=== PATIENT | female | born 1970 | race Caucasian/White ===

== ENCOUNTER → 2023-08-22 16:24 | Outpatient (BNVA) | payer BC, SELFPAY | PROVIDERS: Visit Provider Nurse Practitioner Family | DX: R31.9 Hematuria, unspecified (principal); K57.92 Diverticulitis of intestine, part unspecified, without perforation or abscess without bleeding; K21.9 Gastro-esophageal reflux disease without esophagitis; R10.11 Right upper quadrant pain; F17.200 Nicotine dependence, unspecified, uncomplicated; J44.9 Chronic obstructive pulmonary disease, unspecified; Z12.2 Encounter for screening for malignant neoplasm of respiratory organs; R07.9 Chest pain, unspecified; Z12.11 Encounter for screening for malignant neoplasm of colon; R06.09 Other forms of dyspnea | CPT/HCPCS: 80053; 80061; 82150; 83690 ==

== ENCOUNTER 2023-09-12 11:33 | Outpatient (CLI) | payer BC, SELFPAY ==
--- NOTE | 2023-09-12 11:42 | MM_ITS ---
WS: [id number] BILATERAL 3D TOMOSYNTHESIS DIGITAL SCREENING MAMMOGRAPHY WITH CAD CLINICAL INFORMATION: screening HISTORY: Screening mammogram. No current complaints. COMPARISON: Baseline TECHNIQUE: Bilateral CC and MLO views. FINDINGS: The breasts are composed of heterogeneous fibroglandular density tissue, which can limit the detectio n of small underlying mass lesions. No suspicious mass, asymmetry, calcifications, or architectural d istortion. No evidence of malignancy. Incidental punctate calcifications. IMPRESSION: MM/[place] [id number] BI-RADS: 2-Benign FOLLOW UP: 1 Year Follow-up Recommend return to annual screening mammography.
--- NOTE | 2023-09-12 12:30 | CT_ITS ---
WS: [id number] LDCT LUNG CANCER SCREENING TECHNIQUE: Noncontrast CT of the chest with coronal and sagittal reformatted images. CLINICAL INFORMATION: screening COMPARISON: None. DLP: 41.61 mGy.cm DIvol: Mean CTDIvol: 0.90 (mGy) All CT scans at [facility] use at least one of these dose optimization techniques: automat ed exposure control; mA and/or kV adjustment per patient size (includes targeted exams where dose is matched to clinical indication); or iterative reconstruction. FINDINGS: Ectatic ascending thoracic aorta measuring 3.7 cm. No mediastinal or hilar lymphadenopathy. No axilla ry lymphadenopathy. A few noncalcified subcentimeter pulmonary nodules in the RIGHT upper lobe and RI GHT lower lobe measuring 3 to 4 mm. A few calcified granulomas. Small hazy opacity LEFT lower lobe. N o suspicious pulmonary parenchymal opacities. LEFT adrenal adenoma measuring 1.9 cm. Splenic granulomas. Tiny esophageal hiatal hernia. Mild thoracic curve hypertrophic changes thoracic spine. IMPRESSION: Ectatic ascending thoracic aorta measuring 3.7 cm. This can be further evaluated with CTA . CT/CT lung screening 22923 LUNG-RADS: 2S-Benign Appearance or Behavior with Significant Findings FOLLOW UP: 12 Month: Continue annual screening with LDCT
== END 2023-09-12 11:34 | disposition home or self-care (01) ==
LOC: RAD 11:33
PROVIDERS: Visit Provider Nurse Practitioner Family
DX: Z12.31 Encounter for screening mammogram for malignant neoplasm of breast (principal); Z12.2 Encounter for screening for malignant neoplasm of respiratory organs; F17.200 Nicotine dependence, unspecified, uncomplicated; I77.810 Thoracic aortic ectasia
CPT/HCPCS: 71271; 77063; 77067

== ENCOUNTER → 2023-10-05 13:31 | Outpatient (BNVA) | payer BC, SELFPAY | PROVIDERS: Referring Provider Nurse Practitioner Family; Visit Provider Internal Medicine | DX: R07.9 Chest pain, unspecified (principal) | CPT/HCPCS: 93005 ==

== ENCOUNTER 2023-10-12 09:22 | Outpatient (CLI) | payer BC, SELFPAY ==
--- NOTE | 2023-10-12 10:00 | USCV_ITS ---
Reanna Li Age: 53 Gender: F : 1970 Exam Date: 10/12/2023 09:40 Ordering Phys: Jono Borrero M.D ([email or web address]) Technologist: CT Exam Location: [facility] [place] Indication: sob BP: 140 / 80 HR: 53 Rhythm: Sinus Technical Quality: Technically difficult study,copd MEASUREMENTS (Male / Female) Normal Values 2D ECHO LVOT Diameter 2.0 cm LV Ejection Fraction MOD 2C 62.5 % LV Ejection Fraction 2C AL 62.2 % LA Diameter 2.8 cm Aorta at Sinotubular Diameter 2.0 cm IVC Diameter 1.7 cm M-MODE Aortic Annulus Diameter 3.6 cm LA Ao Ratio MM 0.8 MV E Point Septal Separation 0.3 cm DOPPLER AV Peak Velocity 234.0 cm/s LVOT Peak Velocity 124.0 cm/s AV Area Cont Eq vti 1.5 cm squared AV Area Cont Eq pk 1.7 cm squared MV E' Velocity 12.0 cm/s TR Peak Velocity 76.0 cm/s TR Peak Gradient 2.3 mmHg TV Peak E Velocity 68.0 cm/s Right Atrial Pressure 3.0 mmHg Pulmonary Artery Systolic Pressu 5.3 mmHg PV Peak Velocity 176.0 cm/s FINDINGS Left Ventricle Left ventricle is normal size. LV systolic function is normal with EF of 55 to 60%. No regional wall motion abnormalities are seen. Right Ventricle Normal in size and function Right Atrium Normal in size Left Atrium Normal in size Mitral Valve Structurally normal mitral valve. Trace mitral regurgitation. Aortic Valve Aortic valve is thickened. Mild aortic stenosis with aortic valve area 1.46 cm squared and mean gradient of 11 mmHg. Tricuspid Valve Mild tricuspid regurgitation. Insufficient TR jet to calculate RVSP. Pulmonic Valve Not well visualized Pericardium Normal Aorta Normal in size IVC Appears to be normal CONCLUSIONS LV systolic function is normal with EF of 55 to 60%. Trace mitral regurgitation Mild aortic stenosis with aortic valve area 1.46 cm squared and mean gradient of 11 mmHg. Mild tricuspid regurgitation No comparison studies are available Jono Borrero MD (Electronically Signed) Final Date: 26 October 2023 11:37 S
== END 2023-10-12 09:23 | disposition home or self-care (01) ==
LOC: RAD 09:23
PROVIDERS: Visit Provider Internal Medicine
DX: I08.2 Rheumatic disorders of both aortic and tricuspid valves (principal)
CPT/HCPCS: 93306

== ENCOUNTER 2023-10-18 07:44 | Outpatient (CLI) | payer BC, SELFPAY ==
--- NOTE | 2023-10-18 08:30 | CT_ITS ---
WS: [id number] CTA THORACIC AORTA WITH AND WITHOUT CONTRAST HISTORY: Ectatic ascending thoracic aorta TECHNIQUE: CT imaging of the thorax is performed with and without contrast. After noncontrast imaging is performed, CT angiogram is performed during injection of Omnipaque 350; 100 mL IV.. Sagittal and coronal reconstructions, sagittal and coronal MIP imaging is submitted. All CT scans at [facility] use at least one of these dose optimization techniques: automated exposure control; mA and/or k V adjustment per patient size (includes targeted exams where dose is matched to clinical indication); or iterative reconstruction. DLP: 445.82 mGy.cm COMPARISON: CT 09/12/2023 Very good opacification of the thoracic aorta. Maximum transverse diameter of the ascending aorta is 4.0 cm. Normal aortic root. The ascending aortic ectasia tapers normally through the arch. The descen ding diameter of the aorta at the level of the issa is normal at 2.1 cm. There is no dissection. No rmal appearance of the pulmonary artery. Small amount of calcified plaque at the origin of the LEFT c arotid artery from the arch. No ulcerated plaque. Heart size is normal. No pericardial or pleural effusions. Mild centrilobular emphysema. Benign granu laine LEFT upper lobe. No mass or pneumonia. 3 mm nodule along the RIGHT fissure, image 30 of series 7 . Neck and chest wall are negative. No bone destruction. Degenerative spondylosis in the thoracic spi ne. IMPRESSION: 1. Mild aneurysmal dilatation of the ascending aorta to 4.0 cm. Normal tapering through the arch. 2. No dissection or ulcerated plaque. 3. Mild chronic emphysema.
[2023-10-18] MEDS: iohexol 350 mg/mL 500 mL Btl (per mL) IV (08:53)
== END 2023-10-18 07:45 | disposition home or self-care (01) ==
LOC: RAD 07:51
PROVIDERS: Visit Provider Nurse Practitioner Family
DX: I77.810 Thoracic aortic ectasia (principal); J43.9 Emphysema, unspecified
CPT/HCPCS: 71275; Q9967

== ENCOUNTER 2023-11-14 09:29 | Outpatient (CLI) | payer BC, SELFPAY ==
--- NOTE | 2023-11-14 | ECG_ITS ---
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 Interpretive Statements NAME OF STUDY: EXERCISE SESTAMIBI STRESS TEST INDICATION: [Chest Pain] EXERCISE DATA: The patient was exercised by Vern protocol. Baseline heart rate was 84 beats per minute. Baseline blood pressure was 143/81 millimeters of mercury. Maximal predicted heart rate was 167 beats per minute. Maximum heart rate achieved was 134, which was 80% of the maximum predicted heart rate. Maximum blood pressure was 157/87 millimeters of mercury. Total exercise time was 9 minutes and 19 seconds. Maximum METs achieved was 13.5. The reason for ending the test was maximal effort acieved. The patient complained of shortness of breath during the stress test, which then resolved at the end of the test. ELECTROCARDIOGRAM: BASELINE: Showed sinus rhythm, normal axis, no significant ST-T changes at the baseline noted. [] EXERCISE: At the peak exercise level, [] No significant ST-T changes suggestive of ischemia noted. [] RECOVERY: During the recovery period, heart rate dropped appropriately. No significant ST-T changes in the recovery suggestive of ischemia noted. [] CONCLUSION: 1. Exercise capacity is good 2. Heart rate response was suboptimal. 3. Blood pressure response was appropriate. 4. Symptoms not suggestive of ischemia. 5. Electrocardiogram portion of the stress test is non-diagnostic as target heart rate not achieved. 6. Nuclear scan will be documented separately. Electronically Signed On 11-17-2023 11:22:37 CDT by Jono Borrero M.D. [email or web address]
[2023-11-14 10:10] VITALS: BMI 27.6
--- NOTE | 2023-11-14 10:14 | NMCV_ITS ---
NM [facility] perf SPECT r/s* [id number] BrandonReanna ca Age: 53 Gender: F : 1970 Exam Date: 11/14/2023 11:23 Ordering Phys: Jono Borrero M.D ([email or web address]) Technologist: YINKA Schofield Exam Location: [facility] [place] Indications: CHEST PAIN STRESS TEST Please see separate stress test report in [facility] for full findings IMAGE PROTOCOL Rest/Stress 1 Exercise Day Radiopharmaceutical Dose (mCi) Administration Site Administered by Rest: Tc-99m 10.5 IV YINKA Moore Sestamibi Stress:Tc-99m 32.7 IV YINKA Schofield Sestamisugar Rest: 14-Nov-2023 60 Discovery 630 Stress: 14-Nov-2023 15 Discovery 630 Radiopharmaceutical was injected at 85 % maximum heart rate. Supine position only as patient was unable to lay prone. SPECT RESULTS Technical Quality: Excellent Raw Data Analysis: Normal Image Corrections: No attenuation or motion correction applied Summed Stress Score: 0 Summed Rest Score: 1 Summed Difference Score: 0 PERFUSION FINDINGS SPECT images demonstrate homogeneous tracer distribution throughout the myocardium. FUNCTIONAL RESULTS (calculated via Gated SPECT) Stress Image LV EF (%): 86 Stress EDV (mL):69 TID: 0.93 Stress ESV (mL):10 FUNCTIONAL FINDINGS: There is normal left ventricular systolic function. IMPRESSIONS 1. Normal myocardial perfusion imaging with no evidence of ischemia 2. LV systolic function is normal Jono Borrero MD (Electronically Signed) Final Date: 15 November 2023 10:06 S
[2023-11-14 13:10] VITALS: BP 123/84; PULSE 82
== END 2023-11-14 09:30 | disposition home or self-care (01) ==
PROVIDERS: PCP Nurse Practitioner Family; Visit Provider Internal Medicine
DX: R07.9 Chest pain, unspecified (principal)
CPT/HCPCS: 36415; 78452; 93017; A9500

== ENCOUNTER → 2023-11-24 14:40 | Outpatient (BNVA) | payer BC, SELFPAY | PROVIDERS: PCP Nurse Practitioner Family; Referring Provider Nurse Practitioner Family; Visit Provider Internal Medicine Pulmonary Disease | DX: R06.02 Shortness of breath (principal) | CPT/HCPCS: 82785; 86003 ==

== ENCOUNTER 2024-01-31 07:43 | Outpatient (CLI) | payer BC, SELFPAY | END 2024-01-31 07:44 | disposition home or self-care (01) | PROVIDERS: PCP Nurse Practitioner Family; Visit Provider Nurse Practitioner Family | DX: F17.200 Nicotine dependence, unspecified, uncomplicated (principal); J44.9 Chronic obstructive pulmonary disease, unspecified | CPT/HCPCS: 94010; 94726; 94729 ==